=== PATIENT | female | born 1965 | race Caucasian/White ===

== ENCOUNTER 2024-04-04 12:00 | Emergency (ER) | payer OTHER, SELFPAY ==
[2024-04-04 12:02] VITALS: BP 128/72
[2024-04-04 13:06] VITALS: BMI 28.5
[2024-04-04 13:18] VITALS: BP 120/77
[2024-04-04 13:28] LABS: % Basophils 0.9 % (0-2); % Eosinophils 1.6 % (0-6); % Immature Granulocytes 0.2 % (0-0.5); % Lymphocytes 28.5 % (20.5-51.1); % Monocytes 6.4 % (1.7-9.3); % Neutrophils 62.4 % (42.2-75.2); Absolute Basophils 0.1 10^3/uL (0-0.2); Absolute Eosinophils 0.1 10^3/uL (0-0.7); Absolute Lymphocytes 1.7 10^3/uL (1.2-3.4); Absolute Monocytes 0.4 10^3/uL (0.1-0.6); Absolute Neutrophils 3.6 10^3/uL (1.4-6.5); Hematocrit 40.7 % (37.0-47.0); Hemoglobin 13.8 g/dL (12.0-16.0); Mean Corp Hgb Conc. 33.9 g/dL (33.0-37.0); Mean Corpuscular Hgb 29.9 pg (27.0-31.0); Mean Corpuscular Volume 88.1 fL (81.0-99.0); Nucleated Red Blood Cells % 0 %; Platelet Count 232 10^3/uL (130-400); Red Blood Cell Count 4.62 10^6/uL (4.20-5.40); Red Cell Dist. Width 12.8 % (11.5-14.5); White Blood Cell Count 5.8 10^3/uL (4.8-10.8)
[2024-04-04] MEDS: ZOFRAN 4 MG IV (13:39)
[2024-04-04] MEDS: NSS 1000 IV (13:40)
[2024-04-04 13:45] LABS: ALT (SGPT) 16 U/L (0-35); AST (SGOT) 26 U/L (14-36); Albumin 4.6 g/dl (3.5-5.0); Alkaline Phosphatase 55 U/L (38-126); Blood Urea Nitrogen 16 mg/dl (7-17); Calcium 9.7 mg/dl (8.4-10.2); Carbon Dioxide 29 mmol/L (22-30); Chloride 101 mmol/L (98-107); Estimated Creatinine Clearance 94 ml/min; Glucose 90 mg/dl (70-99); Lipase 78 U/L (23-300); Magnesium 1.8 mg/dl (1.6-2.3); Potassium 4.2 mmol/L (3.5-5.1); Sodium 136 mmol/L (135-145); Total Bilirubin 0.7 mg/dl (0.2-1.3); Total Protein 7.7 g/dl (6.3-8.2); eGFR > 60.00
[2024-04-04 13:51] LABS: Troponin I < 0.012 ng/ml
--- NOTE | 2024-04-04 13:57 | ED.GENMED ---
Addendum entered and electronically signed by Julio Ramos DO 04/04/24 15:56:
Patient updated on the plan of care, asking about a COVID test states she has headaches which had COVID in the vaccination previously but this is different
Addendum entered and electronically signed by Julio Ramos DO 04/04/24 15:39:
Prior to discharge patient reevaluated she tells me just prior to her CAT scan she had another episode sounds like left hemibody numbness or warmth CT scans on [facility] unclear what this could be perhaps an atypical migraine or other have
requested neurology consultation
Original Note:
History of Present Illness
General
Chief Complaint: Weakness
Source: patient and spouse
Exam Limitations: none
Time Seen by Provider: 04/04/24 13:25
Nursing documentation reviewed up to this point in time: agreed with
History of Present Illness
History of Present Illness:
59-year-old female limited past medical history presents with fatigue nausea generalized weakness had headache at this morning around 3 AM does not typically get a lot of headaches, no chest pain no dyspnea no abdominal pain no dark urine no
hematuria no rectal bleeding has been very hot lately does not believe she has been outside a lot in the heat, no slurred speech no focal weakness though she did feel some vague symptoms on the left side, which have resolved
Past History
Past History
ED Past Medical History: None and Other (Depression, anxiety, low blood pressure)
ED Past Surgical History: None
Social History
Tobacco: Non-smoker
Alcohol: Occasional
Drug: None
Personal:
Living: with family
Employment: Employed
Family History
Family History: Other (Noncontributory)
Review of Systems
Review of Systems
All Other Systems: Not applicable
Constitutional: Reports fatigue; Denies fever
EENT: Reports no symptoms
Respiratory: Reports no symptoms
Cardiac: Denies chest pain, diaphoresis or palpitations
ABD/GI: Reports nausea; Denies abdominal pain or vomiting
: Reports no symptoms
Musculoskeletal: Reports no symptoms
Neurological: Reports headache and weakness
Endocrine: Reports no symptoms
Hematologic/Lymphatic: Reports no symptoms
Phy Exam
Physical Exam
Physical Exam:
Physical Exam
General: no apparent distress, not acutely ill
Neck: No jaundice no tongue bite
Heart: s1/s2 regular rate and rhythm, no murmur. equal radial pulses.
Lungs: no acute respiratory distress. clear bilaterally
Abdomen: Nontender
Neuro: alert and oriented. no focal neurological deficits clear speech no facial palsy
Skin: no rash
Psychiatric: well kept. interactive and cooperative
Extremities: no edema.
Scores
Heart Score for Chest Pain Patients
STEMI patient?: No
History: Slightly or Non-Suspicious
ECG: Normal
Age: >45 - <65 years
Risk Factors: No Risk Factors
Troponin: </= Normal Limit
Heart Score for Chest Pain Patients: 1
Heart Score Risk: 2.5% MACE over next 6 weeks
Course
Orders/Labs/Results
Orders:
Orders
04/04/24 12:06
EKG [Electrocardiogram (*1)] Urgent
Reason for Study: Fatigue / Weakness
EKG- Treatment ONCE
04/04/24 13:19
Complete Blood Count/With Diff Urgent
Comprehensive Metabolic Panel Urgent
Lipase Urgent
Magnesium Urgent
TSH Urgent
Troponin I Urgent
04/04/24 13:32
CT Head W/o Iv Contrast Urgent
Comment:
Reason For Exam: headacge
0.9% Sodium Chloride 1000 ml [Nss] 1,000 ml IV BOLUS
Ondansetron Injectable [Zofran] 4 mg IV NOW STA
04/04/24 13:19
04/04/24 13:19
Vital Signs
Initial and Last Documented VS:
Initial Vital Signs
Temp Pulse Resp BP Pulse Ox
98.6 F 63 18 128/72 99
04/04/24 12:02 04/04/24 12:02 04/04/24 12:02 04/04/24 12:02 04/04/24 12:02
Last Documented Vital Signs
Temp Pulse Resp BP Pulse Ox
98.6 F 50 15 120/77 100
04/04/24 12:02 04/04/24 13:45 04/04/24 13:18 04/04/24 13:18 04/04/24 13:45
MDM/Problems Addressed
Differential Diagnosis Includes:
Atypical presentation for ACS, dehydration electrolyte abnormality heat exhaustion does have headache as well
MDM/Problems Addressed:
Headache fatigue weakness
*Radiology
Radiology exam reviewed: preliminary read by ED provider
*Pulse Oximetry
Patient hypoxic: no
*EKG
Interpreted by ED Provider?: Yes
Interpretation: normal
Comparison EKG: no comparison EKG present
Heart Rate: 70
Rate: normal
Rhythm: sinus
Ischemia: no ischemia
*Hand Mounter Interpretation
Rate: normal
Interpretation: normal
Heart Rate: 70
Rhythm: sinus
*Critical Care Note
Total Time (30-74mins, 75-104mins- exclusive of procedures): Not Applicable
Update Note
Update Note:
Etiology unclear EKG looks normal, will check labs start IV fluids and Zofran check troponin also with headache causing a lot of headaches will check CT of the head
Update CT of the head report noted labs are noted patient feeling better
ED Attending Note
-
Portions of this chart may have been created with voice recognition software.� Occasional wrong word or��sound alike� substitutions may have occurred due to the inherent limitations of voice recognition software.
Discharge Plan
Departure
Patient Disposition: Home (Routine Discharge)
Date of Disposition: 04/04/24
Time of Disposition: 15:15
Patient with high blood pressure during this ER visit?: No
Condition: Good
Discharge Problem:
Weakness
Instructions: Generalized Weakness (DC)
Prescriptions:
New
ondansetron 4 mg tablet,disintegrating
4 mg PO TID PRN (Reason: nausea and vomiting) Qty: 10 0RF
No Action
acetaminophen [Tylenol] 325 mg Tablet
650 mg PO Q4HPRN PRN (Reason: mild pain)
sertraline 100 mg Tablet
50 mg PO DAILY
Estring 2 mg (7.5 mcg /24 hour) Ring
1 vag ring VAGINAL [id number]
Referrals:
Maame [place] PA-C [Family Provider] - Next open appointment
Interventions
Interventions:
*Risk Screen - Suicide Last Done: 04/04/24 12:02
*General Assessment Last Done: 04/04/24 13:06
*Neglect/Abuse Screening Last Done: 04/04/24 12:02
ED- Fall Risk Assessment Last Done: 04/04/24 13:33
*ED COVID-19 Vaccine History Last Done: 04/04/24 12:02
ED- Cardiac Assessment Last Done: 04/04/24 13:33
ED- Neurological Assessment Last Done: 04/04/24 13:33
ED- Pulmonary Assessment Last Done: 04/04/24 13:33
Discharge Date and Time
Print Language: [place]
[2024-04-04 14:10] LABS: TSH 0.84 uIU/ml (0.47-4.68)
[2024-04-04 16:00] VITALS: BP 107/69
[2024-04-04 16:40] LABS: COVID-19 Antigen Negative (Negative)
[2024-04-04] MEDS: LOW STRENGTH ASPIRIN 81 MG PO (16:50)
== END 2024-04-04 17:55 | disposition home or self-care (01) ==
LOC: EMR 12:00
PROVIDERS: CONSULT PHYSICIAN Psychiatry & Neurology Neurology; EMERGENCY PHYSICIAN Emergency Medicine; FAMILY PHYSICIAN Physician Assistant
DX: R53.1 Weakness (principal); R53.83 Other fatigue; R11.0 Nausea; F41.8 Other specified anxiety disorders; I95.9 Hypotension, unspecified
CPT/HCPCS: 99284; 96374; 96361; 70450; 80053; 83690; 83735; 84443; 84484; 85025; 87811; 93005

== ENCOUNTER → 2024-08-13 14:05 | Outpatient (REF) | payer OTHER, SELFPAY | LOC: WDC 14:05 | PROVIDERS: ATTENDING PHYSICIAN Obstetrics & Gynecology Gynecology; FAMILY PHYSICIAN Physician Assistant | DX: Z12.39 Encounter for other screening for malignant neoplasm of breast (principal); Z12.31 Encounter for screening mammogram for malignant neoplasm of breast | CPT/HCPCS: 77063; 77067 ==

== ENCOUNTER → 2025-04-30 06:59 | Outpatient (REF) | payer OTHER, SELFPAY ==
[2025-04-30 08:11] LABS: Hematocrit 41.3 % (37.0-47.0); Hemoglobin 13.9 g/dL (12.0-16.0); Mean Corp Hgb Conc. 33.7 g/dL (33.0-37.0); Mean Corpuscular Volume 88.8 fL (81.0-99.0); Nucleated Red Blood Cells % 0 %; Platelet Count 238 10^3/uL (130-400); Red Cell Dist. Width 12.9 % (11.5-14.5)
[2025-04-30 08:41] LABS: ALT (SGPT) 10 U/L (0-35); AST (SGOT) 18 U/L (14-36); Albumin 4.4 g/dl (3.5-5.0); Alkaline Phosphatase 51 U/L (38-126); Blood Urea Nitrogen 14 mg/dl (7-17); Calcium 9.6 mg/dl (8.4-10.2); Carbon Dioxide 32 mmol/L (22-30); Chloride 103 mmol/L (98-107); Glucose 85 mg/dl (70-99); HDL Cholesterol 69 mg/dl; Iron 128 ug/dl (37-170); LDL Cholesterol, Calculated 184 mg/dl; Potassium 4.7 mmol/L (3.5-5.1); Sodium 141 mmol/L (135-145); Total Protein 7.4 g/dl (6.3-8.2); Very Low Density Lipoprotein 16 mg/dl (0-30); eGFR > 60.00
[2025-04-30 08:50] LABS: Total Iron Binding Capacity 290 ug/dl (265-497)
[2025-04-30 09:04] LABS: Vitamin D, 25-OH*** 40.0 ng/mL (30-80)
[2025-04-30 09:13] LABS: Ferritin 26.6 ng/ml (11.1-264.0)
[2025-04-30 09:17] LABS: TSH 0.98 uIU/ml (0.47-4.68)
[2025-04-30 09:37] LABS: Vitamin B12 189 pg/ml (239-931)
== END ==
LOC: REG 06:59
PROVIDERS: ATTENDING PHYSICIAN Physician Assistant
DX: F32.1 Major depressive disorder, single episode, moderate (principal); R53.83 Other fatigue; R53.82 Chronic fatigue, unspecified; R41.89 Other symptoms and signs involving cognitive functions and awareness; E55.9 Vitamin D deficiency, unspecified; Z78.0 Asymptomatic menopausal state; E78.00 Pure hypercholesterolemia, unspecified
CPT/HCPCS: 36415; 80053; 80061; 82306; 82607; 82728; 83540; 83550; 84439; 84443; 85025

== ENCOUNTER → 2025-05-02 08:07 | Outpatient (REF) | payer SELFPAY | LOC: HWRAD 08:07 | PROVIDERS: ATTENDING PHYSICIAN Physician Assistant | DX: E78.00 Pure hypercholesterolemia, unspecified (principal) | CPT/HCPCS: 75571 ==